=== PATIENT | female | born 1950 | race Caucasian/White ===

== ENCOUNTER 2018-09-12 01:16 | Inpatient (IN) | payer OTHER, MEDICAID ==
[~2018-09-12] VITALS: Ht 152.4 cm; Wt 49.9 kg
[2018-09-12 01:16] VITALS: BP_SYST 94
--- NOTE | 2018-09-12 01:16 | NUR ---
Patient to ER bed 6 to gown for evaluation. Side rails up.
--- NOTE | 2018-09-12 01:20 | NUR ---
ER at bedside examining patient.
--- NOTE | 2018-09-12 01:25 | NUR ---
Pt BIBA to ED from [place] C/O gradual onset, moderate, constant visually impairity for about 1 hour According to EMS, pt informed sheet heater that she was "only able to see black." during transport, pt verbalized to EMS that her vision has improved but now she sees "black lines." Pt is a poor historian and is unable to describe further any associated symptoms. Pt with Hx of anxiety, muscle weakness and hypotension. No other injuries and or complaints noted at this time. SBP currently 94, otherwise VSS, no s/s of acute distress. Resting on gurney with rails up
--- NOTE | 2018-09-12 01:40 | NUR ---
Lab bedside for blood draw, pt tolerating well
--- NOTE | 2018-09-12 01:53 | NUR ---
Portable X Ray bedside, pt in stable condition
--- NOTE | 2018-09-12 02:00 | NUR ---
Pt taken to Radiology for CT scan study. Pt in stable condition
[2018-09-12] MEDS ORDERED: OXCA150T5 PO (02:03)
[2018-09-12] MEDS ORDERED: GUAI600T86 PO (02:03)
[2018-09-12] MEDS ORDERED: PRO40 PO (02:03)
[2018-09-12] MEDS ORDERED: LIP40 PO (02:03)
[2018-09-12] MEDS ORDERED: GUAIFENESIN DM PO (02:03)
[2018-09-12] MEDS ORDERED: ACET-2165 PO (02:03)
[2018-09-12] MEDS ORDERED: INSU100V9 SQ (02:03)
[2018-09-12] MEDS ORDERED: IPRA4AER INH (02:03)
[2018-09-12] MEDS ORDERED: MIDO10TA PO (02:03)
[2018-09-12] MEDS ORDERED: CEFE1FRO IV (02:03)
[2018-09-12] MEDS ORDERED: SITA1TBM PO (02:03)
[2018-09-12] MEDS ORDERED: BISA5TAB10 PO (02:03)
[2018-09-12] MEDS ORDERED: ALEN10TA6 PO (02:03)
[2018-09-12] MEDS ORDERED: RANI-362 PO (02:03)
[2018-09-12] MEDS ORDERED: DOCU-144 PO (02:03)
[2018-09-12] MEDS ORDERED: CHOL500013 PO (02:03)
[2018-09-12] MEDS ORDERED: INSU100V SQ (02:03)
[2018-09-12 02:07] LABS: BASOPHILS # (AUTO) 0.1 K/uL (0.0-0.2); BASOPHILS % (AUTO) 0.5 % (0.0-2.0); EOSINOPHILS # (AUTO) 0.3 K/uL (0.0-0.4); EOSINOPHILS % (AUTO) 3.1 % (0.0-4.0); HEMATOCRIT 34.3 % (36-48); HEMOGLOBIN 11.1 g/dL (12.0-16.0); LYMPHOCYTES # (AUTO) 2.1 K/uL (1.0-5.5); LYMPHOCYTES % (AUTO) 19.3 % (20.5-51.5); MEAN CORPUSCULAR HEMOGLOBIN 28 pg (27-31); MEAN CORPUSCULAR HGB CONC 32 % (32-36); MEAN CORPUSCULAR VOLUME 86 fL (79.0-98.0); MONOCYTES # (AUTO) 0.9 K/uL (0.0-1.0); MONOCYTES % (AUTO) 8.7 % (1.7-9.3); NEUTROPHILS # (AUTO) 7.4 K/uL (1.8-7.7); NEUTROPHILS % (AUTO) 68.4 % (40.0-70.0); PLATELET COUNT (AUTO) 548 K/uL (130-430); RED CELL DISTRIBUTION WIDTH 16.7 % (9.0-15.0); WHITE BLOOD COUNT (AUTO) 10.8 K/uL (4.8-10.8)
[2018-09-12] MEDS ORDERED: BISACODYL RC (02:07)
--- NOTE | 2018-09-12 02:08 | NUR ---
Medication reconciliation completed with information provided by facility. Any prior medication reconciliation on file was reviewed and corrected.
--- NOTE | 2018-09-12 02:15 | NUR ---
Pt back from Radiology, CT Scan well tolerated
[2018-09-12 02:17] LABS: CREATININE 1.1 mg/dL (0.55-1.30); POTASSIUM 3.3 mmol/L (3.5-5.1)
[2018-09-12 02:23] LABS: ALBUMIN 2.9 g/dL (3.4-4.8); TOTAL BILIRUBIN 0.3 mg/dL (0.0-1.0)
[2018-09-12 02:29] LABS: PROTHROMBIN TIME 9.9 SECS (9.5-12.5)
[2018-09-12 02:58] LABS: BILIRUBIN,URINE NEGATIVE (NEGATIVE); CLARITY/URINE CLEAR (CLEAR); COLOR,URINE YELLOW (YELLOW); GLUCOSE,URINE NEGATIVE (NEGATIVE); KETONES,URINE NEGATIVE (NEGATIVE); LEUKOCYTE ESTERASE ,URINE NEGATIVE (NEGATIVE); NITRITE, URINE NEGATIVE (NEGATIVE); PH,URINE 6.5 (5.0-8.0); PROTEIN URINE 2+ (NEGATIVE); UROBILINOGEN,URINE 0.2 (0.2-1.0)
[2018-09-12 03:01] LABS: BLOOD, URINE TRACE (NEGATIVE)
[2018-09-12 03:04] LABS: BACTERIA,URINE FEW /HPF (None Seen); WBC,URINE 0-3 /HPF (0-3)
--- NOTE | 2018-09-12 03:05 | NUR ---
S/W Ioana from [facility], updated on pt condition with elevated Troponin Level
--- NOTE | 2018-09-12 03:22 | NUR ---
Pt yelling "I want to go home! I'm calling the police! Take me home NOW!" Dr. Blackburn notified and asked who conservator is and which doctor sent patient.
--- NOTE | 2018-09-12 03:25 | NUR ---
Daughter, Zoraida, was called to let her know mother wants to go home. No response. Left voicemail to call back ED.
--- NOTE | 2018-09-12 03:26 | NUR ---
Called and spoke with Gisel to page Dr. Swanson.
--- NOTE | 2018-09-12 03:30 | NUR ---
Pt was seen trying to get out of bed. Patient screaming in uzbek. Dr. Blackburn at bedside trying to speak with patient.
--- NOTE | 2018-09-12 03:34 | NUR ---
Pt was moved to bed 5.
--- NOTE | 2018-09-12 03:35 | NUR ---
As we were speaking to pt, pt was trying to get out of bed. Pt states, "I will pay you a million dollars if you take me home." She appears to be confused and disoriented. She continued to say, "I will call the police." Pt attempted to bite and kick me. DHAVAL DEL REAL at bedside.
--- NOTE | 2018-09-12 03:43 | NUR ---
Note sylvia in EDM - 09/12/18 at 0415 by [email or web address] Verbal order received to give Ativan 1mg IVP. IV 20g angiocath to left wrist was kinked. Medication did not go through. D/C angiocath, no bleeding noted.
--- NOTE | 2018-09-12 03:43 | NUR ---
Verbal order received to give Ativan 1mg IVP. IV 20g angiocath to left hand was kinked. Medication did not go through. D/C angiocath, no bleeding noted.
[2018-09-12] MEDS ORDERED: LORazepam 2 MG/ML VIAL (FOR ER USE) IVP ONE ×2 (03:45)
--- NOTE | 2018-09-12 03:45 | NUR ---
Note benitezwanda in EDM - 09/12/18 at 0406 by [email or web address] As we were speaking to pt, pt was trying to get out of bed. Pt states, "I will pay you a million dollars if you take me home." She appears to be confused and disoriented. She continued to say, "I will call the police." Pt attempted to bite and kick me. DHAVAL DEL REAL at bedside.
--- NOTE | 2018-09-12 03:56 | NUR ---
Ativan 1mg IM was given, per Dr. Blackburn. No adverse reaction, will continue to monitor.
[2018-09-12] MEDS ORDERED: ASPIRIN 325 MG TABLET PO ONE (04:30)
[2018-09-12] MEDS ORDERED: LORazepam 2 MG/ML VIAL (FOR ER USE) IM ONE (04:30)
--- NOTE | 2018-09-12 05:32 | NUR ---
Transfer to Telemetry via ACLS protocol. Licensed nurse present. IV present no signs or symptoms of infiltration.
--- NOTE | 2018-09-12 05:32 | NUR ---
Patient will be admitted to care of Dr. Crump. Admitted to Telemetry unit. Will go to room 132A. Belongings list completed. Summary report printed. Report will be given at bedside.
[2018-09-12 05:45] VITALS: BP_SYST 94
--- NOTE | 2018-09-12 05:45 | NUR ---
ADMISSION NOTE Received patient from ER via gurney. Patient admitted with diagnosis of elevated troponin/possible CVA. Patient is drowsy, respond to touch only. Patient oriented to hospital room, call light, toileting, pain management and safety-teach back done. Patient informed that Padmini will be her nurse and that their room number [id number]. Personal belongings checked and Belongings List documented. Call light within reach.
--- NOTE | 2018-09-12 05:50 | NUR ---
OPENING NOTE RECEIVED CARE OF PT. PT IS SLEEPING IN BED WITH AUDIBLE SOFT SNORE. VISIBLE SYMMETRICAL RISE AND FALL OF CHEST TO O2 AT 2L VIA NC. NO S/S OF ACUTE DISTRESS. SAFETY PRECAUTIONS IN PLACE: BED LOCKED IN LOWEST POSITION, SIDE RAILS UP X3, CALL LIGHT WITH PT, CLOSE TO NURSES STATION, BED ALARM ON. WILL CONTINUE TO MONITOR.
--- NOTE | 2018-09-12 06:05 | NUR ---
CONSULTATION PAGED/CALLED Reason for Consultation: ELEVATED TROP. Person Who was Notified: MARTÍN Consulting Physician: JADIEL Roll Table Operator Specialty: CARDIO Ordering Physician: RONNELL
--- NOTE | 2018-09-12 06:43 | NUR ---
CLOSING NOTE ALL NEEDS MET DURING SHIFT. WILL CONTINUE TO MONITOR AND PROVIDE CARE UNTIL CARE IS ENDORSED TO DAY SHIFT RN.
--- NOTE | 2018-09-12 07:42 | NUR ---
AM NOTES IN BED, asleep, breathing even and unlabored. Sinus on the monitor. o2 sat at 96% in 2L. will continue to monitor.
[2018-09-12 08:00] VITALS: BP_SYST 134
--- NOTE | 2018-09-12 08:16 | NUR ---
Notes- Patient is very lethargic, breathing unlabored. Blood sugar is 110.
--- NOTE | 2018-09-12 09:38 | NUR ---
Notes Pt is awake now, pt speak belarusian. generation engineer at bedside., Dr. Parks also at bedside. Pt able to see the 2 fingers. pt is confused and unable to provide history at this time.
--- NOTE | 2018-09-12 09:55 | NUR ---
Nutrition Update Mark Scale 15 noted. Pt admitted for elevated troponin, possible CVA. Diet: [facility] BMI: 21.5 kg/m2 RD to follow per nutrition care standards.
[2018-09-12] MEDS: ASPIRIN 325 MG TABLET PO SCH (10:32)
--- NOTE | 2018-09-12 11:30 | NUR ---
Notes- spoke to patient's daughter Tiffanie and ask her about the MRI checklist since patient's is confused.
--- NOTE | 2018-09-12 11:32 | NUR ---
notes- Called Dr. Parks RE: troponin results.
--- NOTE | 2018-09-12 12:24 | NUR ---
notes- Resting in bed, repositioned for comfort. no distress noted. check blood sugar and its 110. Pt cries at times and stated that she wants to go home. Denies any chest pain or shortness of breath. safety precaution observed. will monitor.
[2018-09-12 12:54] VITALS: BP_SYST 102
[2018-09-12] MEDS ORDERED: ACETAMINOPHEN 325 MG TABLET PO PRN (13:15)
[2018-09-12] MEDS ORDERED: DEXTROSE 50% JECT 50 ML DISP.SYRIN IVP PRN (13:15)
--- NOTE | 2018-09-12 13:20 | NUR ---
MD ROUNDS SEEN BY DR. REYNAGA AT BEDSIDE.
--- NOTE | 2018-09-12 13:23 | NUR ---
CONSULTATION PAGED/CALLED Reason for Consultation: CONFUSION Person Who was Notified: SPOKE WITH MARTÍN FROM [facility] Consulting Physician: IS MAILING MACHINE OPERATOR FOR RAYMOND PAIZ Principal Data Architect Specialty: NEURO Ordering Physician: RONNELL PAIZ
--- NOTE | 2018-09-12 13:30 | NUR ---
NOTES- PT WENT TO MRI AT TIS TIME WITH NO DISTRESS NOTED.
--- NOTE | 2018-09-12 14:15 | NUR ---
Notes/MRI- pt came back from MRI. Per MRI, she is not able to do MRI, patient's is calm but when she heard the loud noise patient started to move around. Offered to call MD if she wants to sedate patient but per MRI she will be leaving and this is her last patient for today. Patient's calm at this time. no distress noted. patient's does not want to eat but she is drinking water and juice.
--- NOTE | 2018-09-12 15:45 | NUR ---
notes- Per ambulatory technologist, pt keeps moving her head everytime she tried to do the carotid ultrasound. per ultrasound they will try again in the morning.
[2018-09-12] MEDS: INSULIN REGULAR, HUMAN 100 UNITS/ML, 10 ML VIAL (novoLIN R) SUBCUT PRN ×2 (17:08→23:41)
[2018-09-12 17:11] VITALS: BP_SYST 96
--- NOTE | 2018-09-12 17:19 | NUR ---
Notes- Assisted to bedside commode with moderate assist. pt voided with good amount of urine. Patient's able to see me and the ciaio lumite injector, has clear speech. denies any chest pain. will continue to monitor.
--- NOTE | 2018-09-12 18:44 | NUR ---
Notes- In bed, awake. eating and feeding by the CYBER THREAT ANALYST. no acute distress noted. all needs meet. needs attended. will endorse.
--- NOTE | 2018-09-12 18:46 | NUR ---
PAGED PAGING DR. DUVALL; DR. BEASLEY DIE INSPECTOR, FOR THE CRITICAL LAB RESULTS. SPOKE WITH KLAUDIA.
--- NOTE | 2018-09-12 19:03 | NUR ---
nOTES SPOKE TO DR. BEASLEY ABOUT TROPONIN RESULTS. PER MD, IF THERE IS ANY TROPONIN TEST AND NOT TO CALL FOR RESULTS. WILL ENDORSE.
[2018-09-12 20:00] VITALS: BP_SYST 115
--- NOTE | 2018-09-12 20:00 | NUR ---
Opening Notes The patient was sleeping upon initial assessment. The patient was woken up by light touch and call of her name. The patient displays even and normal breathing. The patient has right forearm IV 22#. The patient is a Khmer speaker. Safety measures and fall precautions are in place. Bed lowered and side rails up.
[2018-09-12] MEDS ORDERED: ATORVASTATIN 20 MG TABLET PO SCH (21:00)
[2018-09-12] MEDS: DOCUSATE SODIUM 100 MG CAPSULE PO SCH (21:18)
[2018-09-12] MEDS: OXcarbazepine 150 MG TABLET(TRILEPTAL) PO SCH (21:18)
--- NOTE | 2018-09-12 22:00 | NUR ---
Nursing Notes The patient is sleeping in bed. Difficult to arouse but still arousable with a more firm touch. Patient displays even and unlabored breathing. The patient's IV access that is clean, dry, and patent. Safety measures and fall precautions are in place. Side rails are up and bed is lowered. Patient is located close to the nurses station. Call light is within reach.
--- NOTE | 2018-09-13 | NUR ---
Nursing Notes The patient is still sleeping in bed. Patient displays even and unlabored breathing. The patient does not appear to be in any distress. The patient has IV access that is clean, dry, and patent. Safety measures and fall precautions are in place. Side rails are up and bed is lowered. Patient is located close to the nurses station. Call light is within reach. Will continue to monitor.
[2018-09-13 00:36] VITALS: BP_SYST 142
--- NOTE | 2018-09-13 02:00 | NUR ---
Nursing Notes The patient has occasionally woken up but has remained asleep for the most part. As of now, the patient is asleep. Patient displays even and unlabored breathing. The patient does not appear to be in any acute distress. IV access is clean, dry, and patent. Safety measures and fall precautions are in place. Side rails are up and bed is lowered. Patient is located close to the nurses station. Call light is within reach. Will continue to monitor.
[2018-09-13 03:13] LABS: BASOPHILS # (AUTO) 0.1 K/uL (0.0-0.2); BASOPHILS % (AUTO) 1.5 % (0.0-2.0); EOSINOPHILS # (AUTO) 0.3 K/uL (0.0-0.4); EOSINOPHILS % (AUTO) 3.6 % (0.0-4.0); HEMATOCRIT 33.3 % (36-48); HEMOGLOBIN 10.6 g/dL (12.0-16.0); LYMPHOCYTES % (AUTO) 24.9 % (20.5-51.5); MEAN CORPUSCULAR HEMOGLOBIN 28 pg (27-31); MEAN CORPUSCULAR HGB CONC 32 % (32-36); MEAN CORPUSCULAR VOLUME 87 fL (79.0-98.0); MONOCYTES # (AUTO) 0.9 K/uL (0.0-1.0); MONOCYTES % (AUTO) 11.5 % (1.7-9.3); NEUTROPHILS # (AUTO) 4.8 K/uL (1.8-7.7); NEUTROPHILS % (AUTO) 58.5 % (40.0-70.0); PLATELET COUNT (AUTO) 448 K/uL (130-430); RED BLOOD CELL COUNT(AUTO) 3.84 MIL/uL (4.2-6.2); RED CELL DISTRIBUTION WIDTH 17.3 % (9.0-15.0); WHITE BLOOD COUNT (AUTO) 8.2 K/uL (4.8-10.8)
[2018-09-13 03:42] LABS: ALBUMIN 2.5 g/dL (3.4-4.8); CALCIUM 8.8 mg/dL (8.4-11.0); CREATININE 1.07 mg/dL (0.55-1.30); POTASSIUM 3.3 mmol/L (3.5-5.1); THYROID STIMULATING HORMONE 1.02 uIu/mL (0.34-4.82); TOTAL BILIRUBIN 0.4 mg/dL (0.0-1.0)
--- NOTE | 2018-09-13 04:24 | NUR ---
Nursing Notes The patient has been asleep. Patient displays even and unlabored breathing. The patient does not appear to be in any acute distress. IV access is clean, dry, and patent. Safety measures and fall precautions are in place. Side rails are up and bed is lowered. Patient is located close to the nurses station. Call light is within reach. Will continue to monitor.
[2018-09-13] MEDS: INSULIN REGULAR, HUMAN 100 UNITS/ML, 10 ML VIAL (novoLIN R) SUBCUT PRN ×2 (05:30→17:08)
--- NOTE | 2018-09-13 06:43 | NUR ---
Closing Notes The patient was awakened for a blood glucose check. She was able to wake up with light touch. The patient is currently sleeping in bed. She does not appear to be in any acute distress and her breathing is even and unlabored. IV access is clean and dry. She was able to ambulate with assistance to the beside commode. Safety measures and fall precautions were put in place. Side rails are up, bed is lowered, and bed alarm is activated. The patient is located close to the nursing station. Call light is within reach and needs are addressed.
--- NOTE | 2018-09-13 07:10 | NUR ---
Opening Note patient resting in bed, eyes closed, breathing unlabored and symmetrical, positioned to her side, no signs of distress, safety precautions in place, call light and bedside table left within reach, room close to station, will continue to monitor patient
[2018-09-13] MEDS: ASPIRIN 325 MG TABLET PO SCH (08:08)
[2018-09-13] MEDS: OXcarbazepine 150 MG TABLET(TRILEPTAL) PO SCH (08:08)
[2018-09-13] MEDS: DOCUSATE SODIUM 100 MG CAPSULE PO SCH (08:09)
--- NOTE | 2018-09-13 08:12 | NUR ---
Medication educated patient regarding meds, verbalized understanding, tolerated well by mouth, denied blurred vision at this time, no other needs at this time, educated patient on use of call light for assistance, verbalized understanding, call light and bedside table left within reach, will continue to monitor
[2018-09-13 08:31] VITALS: BP_SYST 145
[2018-09-13] MEDS ORDERED: PANTOPRAZOLE SODIUM 40 MG TAB PO SCH (09:00)
--- NOTE | 2018-09-13 11:11 | NUR ---
Case t: Rec'd call from Lorraine forman mgr [employer] [phone]-she requested me to fax her snf packet info (pt is from [facility] per [facility])-faxed [employer] snf packet to fax#[phone]--STEF ARTHUR
--- NOTE | 2018-09-13 11:19 | NUR ---
Blood Sugar Assessed no insulin needed per sliding scale, patient resting in bed, calm, denies pain, breathing unlabored, no other needs at this time, educated patient on use of call light for assistance, verbalized understanding, call light and bedside table left within reach, will continue to monitor
[2018-09-13 12:54] VITALS: BP_SYST 93
--- NOTE | 2018-09-13 13:23 | NUR ---
Dr. Galeano Rounds for Dr. Crump, orders received by
[2018-09-13] MEDS ORDERED: guaiFENesin/DEXTROMETHORPHAN 10 ML UDC PO PRN (13:30)
[2018-09-13] MEDS ORDERED: POTASSIUM CHLORIDE 20 MEQ TAB.PRT.SR PO ONE (13:30)
--- NOTE | 2018-09-13 13:50 | NUR ---
Dr. Leach Rounded examined patient
--- NOTE | 2018-09-13 14:23 | NUR ---
Carotid Ultrasound at bedside at this time
--- NOTE | 2018-09-13 15:22 | NUR ---
Case mgt: I rec'd MD order for discharge back to SNF-I contacted Lorraine Wells registered nurse hh case manager,[phone] re: dc order back to SNF-Russell will call our bedside nurse with bed# at [facility] and she will have her coordinator arrange ambulance transport back to SNF--daughter Zoraida made aware of transfer today and wants to be notified re: time of transfer [phone]--I will let Esthela know to call daughter once [place] sets up tranfer time--SNF packet being taken to nursing station. STEF RN
--- NOTE | 2018-09-13 15:30 | NUR ---
Dr. Galeano rounded made MD aware of swelling in hands, verbalized understanding
--- NOTE | 2018-09-13 17:10 | NUR ---
Blood Sugar Assessed insulin provided per sliding scale, educated patient regarding med, verbalized understanding, tolerated well, educated patient on use of call light for assistance, verbalized understanding, call light and bedside table left within reach, will continue to monitor
[2018-09-13 17:43] VITALS: BP_SYST 90
--- NOTE | 2018-09-13 17:52 | NUR ---
bankruptcy attorney time [facility] is at 7:30 pm, spoke with Ene , gave report to Bridget from [place]
--- NOTE | 2018-09-13 18:09 | NUR ---
Called Daughter Edna ` , informed her that patient transferring back to [facility], orange picker time 1929, verbalized understanding
[2018-09-13 18:41] VITALS: BP_SYST 140
--- NOTE | 2018-09-13 18:52 | NUR ---
Closing Note patient resting in bed, no signs of distress, no complaints of pain, breathing unlabored and symmetrical, educated patient regarding use of call light for assistance, verbalized understanding, call light and bedside table left within reach, room close to station, will endorse to police shift commander nurse
--- NOTE | 2018-09-13 20:04 | NUR ---
D/C Patient to [facility] via ambulance with 2 EMT. Patient given medication reconciliation form and D/C instructions packet. Exit Care provided. Patient verbalized understanding. MD discussed with patient the results and treatment provided. Patient is bedrest and transported via gurney. Patient in stable condition, ID band removed. IV catheter removed, intact and dressing applied, no active bleeding. Patient educated on pain management. All belongings sent with patient.
== END 2018-09-13 20:04 | DRG 280 ==
LOC: SED 01:16 → STU 05:16
PROVIDERS: ADMIT Internal Medicine Hospice and Palliative Medicine; ATTEND Internal Medicine Hospice and Palliative Medicine
DX: I21.A1 Myocardial infarction type 2 (principal); E43 Unspecified severe protein-calorie malnutrition; E46 Unspecified protein-calorie malnutrition; I45.2 Bifascicular block; I69.351 Hemiplegia and hemiparesis following cerebral infarction affecting right dominant side; E11.649 Type 2 diabetes mellitus with hypoglycemia without coma; R01.1 Cardiac murmur, unspecified; H53.9 Unspecified visual disturbance; I95.89 Other hypotension; F32.9 Major depressive disorder, single episode, unspecified; E78.5 Hyperlipidemia, unspecified; R29.6 Repeated falls; I10 Essential (primary) hypertension; I25.10 Atherosclerotic heart disease of native coronary artery without angina pectoris; F03.90 Unspecified dementia, unspecified severity, without behavioral disturbance, psychotic disturbance, mood disturbance, and anxiety; F41.9 Anxiety disorder, unspecified; Z79.899 Other long term (current) drug therapy; I25.2 Old myocardial infarction; Z95.1 Presence of aortocoronary bypass graft; Z87.01 Personal history of pneumonia (recurrent); Z68.21 Body mass index [BMI] 21.0-21.9, adult
CPT/HCPCS: 36415; 70450-TC; 71045; 80053; 80061; 81000-TC; 82962; 83880; 84443-TC; 84484; 85025; 85610-TC; 85730-TC; 87040-TC; 87081; 93005; 93306; 93880; 96372; 96374; 99285; G0378; J1815; J2060; J7120